=== PATIENT | male | born 1995 | race Caucasian/White ===

== ENCOUNTER 2022-03-22 14:24 | Outpatient (CLI) | payer OTHER ==
--- NOTE | 2022-03-22 16:07 | DEXA Report ---
PROCEDURE: Dexa Spine and/or Hip INDICATIONS: ATYPICAL FRACTURE OF ACETABULUM TECHNIQUE: Dual energy x-ray absorptiometry (DXA) was performed on a Bilibot System. Regions measur ed are the AP Spine, femoral neck, and if needed forearm. COMPARISON: None. FINDINGS: Lumbar Spine: Bone Mineral Density 1.250 g/cm/cm,T score 0.3, normal Left Hip: Bone Mineral Density 1.031 g/cm/cm,T score -0.5, normal Left Femoral Neck: Bone Mineral Density 1.014 g/cm/cm, T score -0.4, normal (T score greater or equal to -1.0: NORMAL) (T score from -1.1 to -2.4: OSTEOPENIA) (T score less than or equal to -2.5 to: OSTEOPOROSIS) Impression: Normal bone mineral density. Patients with diagnosis of osteoporosis or osteopenia should have regular bone mineral density assess ment. For those eligible for Medicare, routine testing is allowed once every 2 years. Testing frequ ency can be increased for patients who have rapidly progressing disease or for those who are receivin g medical therapy to restore bone mass. Reviewed by: Aziza Sellers MD on 03/22/2022 4:05 PM PDT Approved by: Aziza Sellers MD on 03/22/2022 4:05 PM PDT Station ID: [id number]
== END 2022-03-22 14:25 | disposition home or self-care (01) ==
LOC: DI 14:24
PROVIDERS: ATTEND Nurse Practitioner Family
DX: S32.409A Unspecified fracture of unspecified acetabulum, initial encounter for closed fracture (principal)

== ENCOUNTER 2022-06-28 08:54 | Outpatient (CLI) | payer OTHER ==
[2022-06-28] MEDS ORDERED: lidocaine 1% 20 ML MDV ONE (08:59)
[2022-06-28] MEDS ORDERED: TRIAMCINOLONE 40 MG/ML VIAL ONE (08:59)
[2022-06-28] MEDS ORDERED: iohexoL-240 10 ML VIAL IVP ONE ×2 (08:59→11:01)
[2022-06-28] MEDS ORDERED: lidocaine 1% 20 ML MDV SUBQ ONE (11:03)
[2022-06-28] MEDS ORDERED: TRIAMCINOLONE 40 MG/ML VIAL IM ONE (11:05)
--- NOTE | 2022-07-01 08:31 | XRAY Report ---
PROCEDURE: Inj/Aspiration Major Joint INDICATIONS: HIP PAIN CONTRAST: Iodinated contrast. FLUORO TIME: 0.7 min TECHNIQUE: The indications, alternatives, benefits, risks, and complications of the procedure were explained to the patient. Written informed consent was obtained and placed in the chart. The patient was placed in an appropriate position on the fluoroscopy table, and a site was chosen for percutaneous access un sammi fluoroscopic guidance. Local anesthetic was administered using a 1% lidocaine solution. A hypod ermic or spinal needle was then used to access the symptomatic joint. Intra-articular location of th e needle tip was confirmed by injecting a small amount of contrast, followed by steroid administratio n. The needle was then withdrawn, and a bandage applied to the puncture site. FINDINGS: Joint injected: joint Medications injected: amount mL of 40 mg/mL Kenalog and lidocaine mixture. Complications: None. IMPRESSION: Successful fluoroscopically guided administration of steroid and anaesthetic solution into the right hip joint. Reviewed by: Dianne Schumacher MD on 07/01/2022 8:30 AM PST Approved by: Dianne Schumacher MD on 07/01/2022 8:30 AM PST Station ID: [id number]
== END 2022-06-28 08:55 | disposition home or self-care (01) ==
LOC: DI 08:54
PROVIDERS: ATTEND Orthopaedic Surgery
DX: M25.551 Pain in right hip (principal)
CPT/HCPCS: 20610; 77002; Q9966

== ENCOUNTER 2023-01-15 12:25 | Emergency (ER) | payer OTHER ==
[2023-01-15 12:36] VITALS: BP 162/106
--- NOTE | 2023-01-15 12:43 | ED Physician Documentation ---
PD HPI URI - Stated complaint Stated Complaint: COUGH - Chief complaint Chief Complaint: Resp - History obtained from History obtained from: Patient - Additional information Additional information: 27-year-old gentleman has been sick for 2 weeks with productive cough and sinus congestion. No fevers, but he did have some body aches at the outset. No shortness of breath. PD PAST MEDICAL HISTORY - Present Medications Home Medications: Ambulatory Orders Medication Instructions Recorded Confirmed No Known Home Medications 01/15/23 01/15/23 - Allergies Allergies/Adverse Reactions: Allergies Allergy/AdvReac Type Severity Reaction Status Date / Time No Known Drug Allergies Allergy Verified 01/15/23 12:31 PD ED PE NORMAL - Vitals Vital signs reviewed: Yes - General General: Alert and oriented X 3, No acute distress - HEENT HEENT: Ears normal, Pharynx benign, Other (No sinus tenderness) - Neck Neck: Supple, no meningeal sign, No bony TTP - Cardiac Cardiac: RRR, No murmur - Respiratory Respiratory: No respiratory distress, Clear bilaterally - Abdomen Abdomen: Non tender - Derm Derm: Normal color, Warm and dry - Neuro Neuro: Alert and oriented X 3, Normal speech Results - Vitals Vitals: Vital Signs - 24 hr 01/15/23 12:27 Temperature 36.6 C Heart Rate 88 Respiratory 16 Rate Blood Pressure 162/106 H O2 Saturation 100 Oxygen O2 Source Room air PD Medical Decision Making - ED course ED course: 27-year-old gentleman with a persistent viral respiratory syndrome with no abnormal physical findings and no reports of fever. We discussed potentially a watch and wait prescription for antibiotics but after discussion he would like to forego that and just have symptomatic treatment. Departure - Departure Disposition: 01 Home, Self Care Clinical Impression: Viral bronchitis Condition: Good Record reviewed to determine appropriate education?: Yes Instructions: ED Upper Resp Infec No Abx Tx Comments: Mucinex D which is available [id number] per package instructions for the congestion. Drink plenty fluids. You do have to get the Mucinex D from the pharmacist because it has Sudafed in it, although does not actually require a prescription. Return if worse or if not better after a week or so.
== END 2023-01-15 12:49 | disposition home or self-care (01) ==
LOC: ED 12:25
DX: J20.8 Acute bronchitis due to other specified organisms (principal)
CPT/HCPCS: 99281; 99283